=== PATIENT | female | born 1980 | race Caucasian/White ===

== ENCOUNTER 2019-07-28 08:22 | Outpatient (CLI) | payer OTHER | END 2019-07-28 23:59 | disposition home or self-care (01) | LOC: CFH 08:22 | PROVIDERS: ATTEND Obstetrics & Gynecology Maternal & Fetal Medicine | DX: R92.8 Other abnormal and inconclusive findings on diagnostic imaging of breast (principal) | CPT/HCPCS: 76642; 77065; G0279 ==